=== PATIENT | male | born 1990 | race American Indian/Alaskan Native ===

== ENCOUNTER 2016-05-01 23:28 | Emergency (ER) | payer SELFPAY ==
[2016-05-02 00:57] VITALS: BP 119/74
[2016-05-02] MEDS ORDERED: MOTRIN PO ONE (02:10)
--- NOTE | 2016-05-02 02:10 | Emergency Department Report ---
HPI - General Chief Complaint: Dental/Oral Time Seen by Provider: 05/02/16 02:03 - HPI HPI: Patient here complaining of tooth ache to his right lower wisdom tooth. He said he is unable to get any sleep. Denies any facial swelling, fever or chills. He said this started yesterday and he took [id number] medication but is not helping. Toothache is 10 out of 10 and aching. ED Past Medical Hx - Past Medical History Previous Medical History?: No - Surgical History Past Surgical History?: No - Family History Family history: no significant - Social History Smoking Status: Never Smoker Substance Use Type: None - Medications Home Medications: Home Medications Medication Instructions Recorded Confirmed Last Taken Type Acetaminophen/Codeine [Tylenol #3] 1 tab PO Q6H PRN #12 tab 05/02/16 Unknown Rx Amoxicillin [Amoxicillin TAB] 875 mg PO BID #20 tablet 05/02/16 Unknown Rx ED Review of Systems ROS: Stated complaint: MOUTH PAIN Other details as noted in HPI Comment: All other systems reviewed and negative Constitutional: denies: chills, fever ENT: dental pain. denies: ear pain, throat pain, congestion Respiratory: no symptoms reported Cardiovascular: denies: chest pain, palpitations, edema, syncope Gastrointestinal: denies: nausea, vomiting Musculoskeletal: denies: arthralgia Skin: denies: rash Neurological: denies: headache Physical Exam - Physical Exam Vital Signs: Vital Signs 05/02/16 00:54 Temperature 98.7 F Pulse Rate 74 Respiratory 18 Rate Blood Pressure 119/74 O2 Sat by Pulse 100 Oximetry General: This is a 25-year-old male well-nourished well-developed in no acute distress. Physical Exam: Head: Normocephalic atraumatic Mouth: Moist, no pharyngeal exudate or erythema. Uvula is midline and oral airway is patent. No gingival enlargement. dental tenderness around his right lower wisdom tooth. No facial swelling. No peritonsillar abscesses. No cellulitis noted. Neck: Supple, no C-spine tenderness, no tracheal deviation. Nontender to palpate. no adenopathy Ears: Bilateral TMs pearly-arroyo.bilateral EAC without any redness swelling or drainage Eyes: Bilateral pupils equal and reactive to light, bilateral EOM intact. Bilateral sclera and conjunctiva without injection. Normal accommodation Nose: Mucosa moist, normal mucosa .maxillary and frontal sinus non-tender to palpate. Lungs: Clear to auscultate bilaterally no rhonchi wheezes or rales. Normal work of breathing extremity; No CCE. +2 pulses. No neurovascular compromise Cardiovascular: S1-S2, regular rate rhythm. No murmurs. Skin: clean Dry and intact no rash no lesions Psych: Normal mood and behavior ED Course Vital Signs 05/02/16 00:54 Temperature 98.7 F Pulse Rate 74 Respiratory 18 Rate Blood Pressure 119/74 O2 Sat by Pulse 100 Oximetry - Reevaluation(s) Reevaluation #1: 05/02/16 03:20 Patient received Motrin 800 mg one tablet in emergency room to manage toothache. ED Medical Decision Making - Medical Decision Making ED course: Patient given Motrin 800 mg one tablet in emergency room to manage toothache. I discussed the patient that he will need to follow up with dentist for evaluation and treatment of right lower wisdom tooth pain. I discussed treatment plan with him and he reports understanding. Patient discharged home with prescription for Tylenol 3 and amoxicillin. Critical care attestation.: If time is entered above; I have spent that time in minutes in the direct care of this critically ill patient, excluding procedure time. ED Disposition Clinical Impression: Toothache Disposition: DISCHARGED TO HOME OR SELFCARE Is pt being admited?: No Does the pt Need Aspirin: No Condition: Stable Instructions: Toothache (ED) Additional Instructions: Please follow up with dentist as instructed Please take antibiotic as prescribed. Tylenol 3 can cause drowsiness so please do not drive or operate any heavy machinery. Prescriptions: Acetaminophen/Codeine [Tylenol #3] 1 tab PO Q6H PRN #12 tab PRN Reason: Toothache Amoxicillin [Amoxicillin TAB] 875 mg PO BID #20 tablet Referrals: [facility] [Outside] - 2-3 Days PRIMARY CARE, [Primary Care Provider] - 2-3 Days Forms: Work/School Release Form(ED)
== END 2016-05-02 03:24 | disposition home or self-care (01) ==
LOC: ED 23:28
DX: K08.89 Other specified disorders of teeth and supporting structures (principal)
CPT/HCPCS: 99282

== ENCOUNTER 2017-03-25 02:04 | Emergency (ER) | payer OTHER ==
[2017-03-25 03:20] VITALS: BP 120/80
[2017-03-25] MEDS ORDERED: MOTRIN PO ONE (03:25)
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
== END 2017-03-25 08:20 | disposition home or self-care (01) ==
LOC: ED 02:04
DX: S46.912A Strain of unspecified muscle, fascia and tendon at shoulder and upper arm level, left arm, initial encounter (principal); S39.012A Strain of muscle, fascia and tendon of lower back, initial encounter; S13.4XXA Sprain of ligaments of cervical spine, initial encounter; V49.59XA Passenger injured in collision with other motor vehicles in traffic accident, initial encounter; Y93.89 Activity, other specified; Y92.89 Other specified places as the place of occurrence of the external cause; Y99.8 Other external cause status
CPT/HCPCS: 72100